=== PATIENT | male | born 2000 | race American Indian/Alaskan Native ===

== ENCOUNTER 2024-01-25 15:46 | Emergency (ER) | payer OTHER, SELFPAY ==
[2024-01-25] VITALS (7 sets, daily range): BP systolic 119–158; BP diastolic 68–85; PULSE 93–138; RESP 16–24; TEMP 36.3; O2SAT 95–100
--- NOTE | ~2024-01-25 | CT_ITS ---
CT brain wo con Ordering provider: Scooter Fregoso MD History: 24 years Male with . AMS . Comparison: The Technique: CT of the head without contrast. Radiation reduction technique utilized.The dose-length product was 605.33 mGy-cm. FINDINGS: BRAIN PARENCHYMA AND CSF SPACES: No midline shift, mass effect or hemorrhage. The brain parenchyma a nd CSF spaces are otherwise normal. VISUALIZED PARANASAL SINUSES: Well aerated. MASTOIDS: Well aerated. BONES: The bones appear intact. SOFT TISSUES: Visualized nasopharynx is normal. Superficial soft tissues are normal. IMPRESSION: No acute intracranial findings. Reviewed, dictated and finalized at location A.
--- NOTE | 2024-01-25 16:04 | ECG_ITS ---
Test Date: 2024-01-25 15:52:36 Measurements Intervals [place] Rate: 114 P: 66 CA: 125 QRS: 48 QRSD: 86 T: 24 QT: 303 QTc: 417 Interpretive Statements SINUS TACHYCARDIA POSSIBLE LEFT ATRIAL ENLARGEMENT DELAYED PRECORDIAL R/S TRANSITION BORDERLINE ST-T WAVE ABNORMALITY- ANTEROLAT/INF LEADS ABNORMAL ECG No previous ECG available for comparison Electronically Signed On 01-25-2024 20:26:47 CDT by Tayo Lakhani D.O.
[2024-01-25 16:13] LABS: Basophils Percent Auto 0.1 % (0.2-1.2); Eosinophils Percent Auto 0.1 % (0-4.4); Hematocrit 47.3 % (42.0-52.0); Hemoglobin 15.1 g/dL (14.0-18.0); Immature Granulocyte Absolute 0.05 K/mm3 (0.00-0.031); Immature Granulocyte Percent A 0.4 % (0-0.5); Lymphocytes Absolute Auto 1.75 K/mm3 (0.9-3.2); Lymphocytes Percent Auto 14.9 % (18.3-44.2); Mean Corpuscular HGB Conc 31.9 g/dl (32-36); Mean Corpuscular Hemoglobin 28.3 pg (26-34); Mean Corpuscular Volume 88.6 fl (80-100); Monocytes Absolute Auto 0.6 K/mm3 (0.1-0.6); Neutrophils Absolute Auto 9.3 K/mm3 (1.3-6.7); Neutrophils Percent Auto 79.5 % (45.5-73.1); Platelet Count Result 227 k/mm3 (150-375); Red Blood Count 5.34 M/mm3 (4.6-6.20); Red Cell Distribution Width 12.8 % (11.5-14.5); White Blood Count 11.7 K/mm3 (4.5-10.0)
[2024-01-25 16:19] LABS: Add Urine Microscopic? YES; Appearance Urine Clear (Clear); Bacteria Urine None Seen /hpf; Bilirubin Urine Negative (Negative); Blood Urine Negative (Negative); Color Urine Yellow (Yellow); Glucose Urine UA Negative (Negative); Ketones Urine Trace mg/dL (Negative); Leukocyte Esterase Ur Negative LEU/UL (Negative); Nitrate Urine Negative (Negative); Protein Urine Trace mg/dL (Negative); RBC Urine 0-2 /hpf (0-2); Squamous Epithelial Cell Urine None Seen /hpf (Few); WBC Urine 0-5 /hpf (0-3)
[2024-01-25 16:24] LABS: Prothrombin Time 13.9 Seconds (11.1-14.7)
[2024-01-25 16:25] LABS: Partial Thromboplastin Time 22.5 Seconds (22.3-36.8)
[2024-01-25 16:30] LABS: Amphetamine Screen Urine Negative (Negative); Barbiturate Screen Urine Negative (Negative); Benzodiazepines Screen Urine Negative (Negative); Cannabinoid Screen Urine Negative (Negative); Cocaine Screen Urine Negative (Negative); Methadone Screen Urine Negative (Negative); Opiate Screen Urine Negative (Negative); Phencyclidine Screen Urine Negative (Negative)
[2024-01-25 16:35] LABS: Alanine Aminotransferase 34 U/L (6-50); Albumin Level 5.3 g/dL (3.5-5.1); Alkaline Phosphatase 100 U/L (38-126); Anion Gap 17 mmol/L (4-12); Aspartate Amino Transferase 35 U/L (17-59); Bilirubin,Total 0.6 mg/dL (0.2-1.3); Blood Urea Nitrogen 12 mg/dL (9-20); Carbon Dioxide 24 mmol/L (22-30); Chloride 97 mmol/L (98-107); Estimated CRCL calculation 120 ml/min; Estimated Glomerular Filt Rate > 60; Glucose 123 mg/dL (65-110); Magnesium 1.7 mg/dL (1.6-2.3); Potassium 3.1 mmol/L (3.4-5.0); Sodium 138 mmol/L (137-145)
[2024-01-25] MEDS: SODIUM CHLORIDE 0.9% IV 1,000 ML 999 ML IV CONT ×2 (16:37)
[2024-01-25 16:41] LABS: Alveolar/Arterial O2 Gradient 16.1 mmHg; Base Excess ABG 1.3 mEq/l (+/-2.0); Carboxyhemoglobin 0.5 % THb (0-2.0); Fractional Inspired Oxygen 21 %; HCO3 ABG 25.2 mEq/l (22.0-26.0); Methemoglobin ABG 0.4 %THb (0-1.5); Oxygen Content ABG 20.9 %vol (16.0-22.0); Oxyhemoglobin 96.2 % THb (90.0-100.0); PCO2 ABG 38.1 mmHg (35.0-45.0); PO2 FiO2 Ratio Arterial Blood 4.19 %; Reduced Hemoglobin 2.9 %THb (0-5.0); Total Hemoglobin 15.4 g/dL (12.0-18.0); pH ABG 7.439 (7.350-7.450)
[2024-01-25 16:42] LABS: Modified Allen's Test Pass; Site Drawn RIGHT RADIAL
--- NOTE | 2024-01-25 16:48 | PC.NURSE ---
Remains nonverbal with eyes closes. Responds to pain only.
[2024-01-25 16:55] LABS: Erythrocyte Sedimentation Rate 5 mm/hr (0-20)
[2024-01-25 17:05] LABS: Influenza A QL RT-PCR Negative (Negative); Influenza B QL RT-PCR Negative (Negative); RSV RNA, RT-PCR Negative (Negative); SARS-CoV-2 RNA PCR Negative (Negative)
[2024-01-25] MEDS: KCL 20 MEQ/SW 100 ML 100 ML 50 MEQ IVPB (17:05)
--- NOTE | 2024-01-25 17:05 | PC.NURSE ---
Pt awake and talking with friends at bedside.
--- NOTE | 2024-01-25 17:05 | ED.AMS ---
HPI - Altered Mental Status General Chief Complaint: Altered Mental Status Stated Complaint: ams History of Present Illness HPI narrative: [age] old male presenting emergency department for evaluation for altered mental status. Patient reported that he did not feel well today and left work and went to the [facility] and due to his altered mental status he was transferred to the emergency department by EMS. Upon arrival to the emergency department patient was nonverbal but was responsive. Review of Systems Review of Systems: All systems reviewed & are unremarkable except as noted in HPI and below Exam Narrative: APPEARANCE: Well appearing, no pain, no distress, well-nourished. HEAD: normocephalic, atraumatic. EYES: PERRLA/EOMI, conjunctivae clear. NOSE: Normal no drainage EARS:TMS clear with good light reflex. THROAT: Pharynx clear, no exudate. NECK: Supple. No adenopathy, no masses. RESPIRATORY: Airway patent, respirations nonlabored. Clear to auscultation bilaterally, no rales, rhonchi, wheezing. CARDIOVASCULAR: Regular rate and rhythm without murmurs rubs or gallops. ABDOMINAL: Soft, nontender, nondistended, normal bowel sounds MUSCULOSKELETAL: Moves all extremities. Strength/ROM intact, No edema, No calf tenderness. NEURO: Alert. Cranial nerves II through XII intact. Good gait. Good coordination SKIN: Warm, dry. Normal Color Course Course Emergency Course: Patient return to his baseline had no complaints. Patient had a negative workup. Vital Signs Vital signs: Vital Signs Temperature 97.3 F L 01/25/24 15:43 Pulse Rate 114 H 01/25/24 15:43 Respiratory Rate 16 01/25/24 15:43 Blood Pressure 158/85 H 01/25/24 15:43 Pulse Oximetry 97 01/25/24 15:43 Temperature 97.3 F L 01/25/24 15:43 Pulse Rate 93 01/25/24 18:22 Respiratory Rate 24 H 01/25/24 18:22 Blood Pressure 119/68 01/25/24 18:22 Pulse Oximetry 100 01/25/24 18:22 MDM - Altered Mental Status MDM Narrative Medical decision making narrative: On re-evaluation patient is more alert and appropriate. Patient is afebrile but does have a minor leukocytosis 11.7 a stable hemoglobin of 15.1. Patient has a normal ESR. No abnormalities on his ABG. Patient's potassium was low at 3.1 this was replaced by IV. Patient's CRP was not elevated. UA was negative. Patient was negative on his urine drug screen and negative for COVID influenza and RSV Patient is now back at his baseline. Patient states he has had some increased life stresses and thinks this may have contributed to what was going on. Patient denies any complaints at this time. Patient is comfortable plan for discharge and close follow-up with the primary care physician. Differential Diagnosis Differential diagnosis: Likely alcoholic intoxication, altered mental status, delirium, hypoglycemia, hyponatremia and subarachnoid hemorrhage Lab Data Attestation: I reviewed the patient's lab results. 01/25/24 16:04 01/25/24 16:04 Labs: Lab Results 01/25/24 01/25/24 01/25/24 Range/Units 16:03 16:04 16:20 WBC 11.7 H (4.5-10.0) K/mm3 RBC 5.34 (4.6-6.20) M/mm3 Hgb 15.1 (14.0-18.0) g/dL Hct 47.3 (42.0-52.0) % MCV 88.6 (80-100) fl MCH 28.3 (26-34) pg MCHC 31.9 L (32-36) g/dl RDW 12.8 (11.5-14.5) % Plt Count 227 (150-375) k/mm3 MPV 11.0 H (7.4-10.4) fl Immature Gran % (Auto) 0.4 (0-0.5) % Neut % (Auto) 79.5 H (45.5-73.1) % Lymph % (Auto) 14.9 L (18.3-44.2) % [place] % (Auto) 5.0 (2.6-8.5) % Eos % (Auto) 0.1 (0-4.4) % Baso % (Auto) 0.1 L (0.2-1.2) % Lymph # (Auto) 1.75 (0.9-3.2) K/mm3 [place] # (Auto) 0.6 (0.1-0.6) K/mm3 Eos # (Auto) 0.0 (0-0.3) K/mm3 Baso # (Auto) 0.0 (0.0-0.1) K/mm3 Abs Immat Gran (auto) 0.05 H (0.00-0.031) K/mm3 Absolute Neuts (auto) 9.3 H (1.3-6.7) K/mm3 Absolute Nucleated RBC 0.000 (0.0-0.012) K/mm3 Nucleated
[2024-01-25 17:06] LABS: CRP 0.7 mg/dL (<1.0)
== END 2024-01-25 19:11 | disposition home or self-care (01) ==
PROVIDERS: Emergency Provider Emergency Medicine
DX: R41.82 Altered mental status, unspecified (principal); Z20.822 Contact with and (suspected) exposure to COVID-19; R00.0 Tachycardia, unspecified; R94.31 Abnormal electrocardiogram [ECG] [EKG]
CPT/HCPCS: 36415; 36600; 70450; 80053; 80307; 81001; 82375; 82805; 82810; 83050; 83735; 84443; 85025; 85610; 85652; 85730; 86140; 87637; 93005; 96365; 96366; 99284; J3480; J7030

== ENCOUNTER 2025-01-12 05:55 | Emergency (ER) | payer OTHER, SELFPAY ==
[2025-01-12] VITALS (8 sets, daily range): BP systolic 127–144; BP diastolic 64–83; PULSE 70–85; RESP 13–32; TEMP 36.6; O2SAT 92–100
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
[2025-01-12] MEDS: HYDROcodone/acetaminophen (*CRX) 5-325 MG TABLET 1 TAB PO (06:04)
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
[2025-01-12] MEDS: KETOROLAC 30 MG/ML VIAL (*BKC) 15 MG IM (07:10)
[2025-01-12] MEDS: LIDOCAINE 5% PATCH 1 PATCH TRANSDERM (07:10)
--- NOTE | 2025-01-12 09:00 | PC.NURSE ---
[employer] [facility] at bedside to fit patient for back brace prior to discharge.
--- NOTE | 2025-01-12 09:36 | PC.NURSE ---
[facility]
== END 2025-01-12 09:38 | disposition home or self-care (01) ==
LOC: ANHED 06:59
PROVIDERS: Emergency Provider Emergency Medicine
DX: S32.010A Wedge compression fracture of first lumbar vertebra, initial encounter for closed fracture (principal); S32.020A Wedge compression fracture of second lumbar vertebra, initial encounter for closed fracture; V48.5XXA Car driver injured in noncollision transport accident in traffic accident, initial encounter
CPT/HCPCS: 72131; 96372; 99284; A9270; J1885

== ENCOUNTER 2025-02-15 13:05 | Outpatient (CLI) | payer OTHER, SELFPAY ==
--- NOTE | ~2025-02-15 | XR_ITS ---
XR lumbar spine 2-3V Indication: lumbar compression fracture L1,L2 COMPRESSION FRACTURE Comparison: None Findings: There is a remote appearing superior endplate fracture of L1 and L2 with loss of height 50%, no acute fracture or subluxation identified. The disc heights are intact. Soft tissues unremarkable Impression: No acute abnormality. Reviewed, dictated and finalized at location P. Impression: No acute abnormality.
== END 2025-02-15 13:06 | disposition home or self-care (01) ==
DX: S32.000A Wedge compression fracture of unspecified lumbar vertebra, initial encounter for closed fracture (principal); X58.XXXA Exposure to other specified factors, initial encounter
CPT/HCPCS: 72100